=== PATIENT | male | born 1990 | race Two or more races ===

== ENCOUNTER 2021-02-07 17:07 | Inpatient (IN) | payer MEDICAID ==
[~2021-02-07] VITALS: Ht 182.9 cm; Wt 94.6 kg
--- NOTE | 2021-02-07 17:25 | NUR ---
THE PATIENT IS BIBS C/O GENERALIZED BODY PAIN X TODAY. 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 RATES GENETALIZED BODY PAIN 7/10. IN ROOM AIR AND DENIES SOB. RESPIRATION REGULAR AND UNLABORED. THE PATIENT IS ALERT AND ORIENTED X4. ATTACHED TO THE MONITOR.
[2021-02-07] MEDS ORDERED: IV NS 0.9% 1,000 ML BAG IV ONE (17:30)
--- NOTE | 2021-02-07 17:40 | NUR ---
CODE STEMI CALLED
--- NOTE | 2021-02-07 17:43 | NUR ---
CALLED [facility] [phone] [facility] FAXING FACE SHEET AND EKG [phone]
[2021-02-07 17:46] LABS: BASOPHILS % (AUTO) 0.3 % (0.0-2.0); HEMATOCRIT 46 % (39-51); HEMOGLOBIN 15.6 g/dL (13.5-17.5); LYMPHOCYTES # (AUTO) 1.1 K/uL (0.8-4.8); LYMPHOCYTES % (AUTO) 6.9 % (20.0-44.0); MEAN CORPUSCULAR HGB CONC 34 g/dl (31.0-36.0); MEAN CORPUSCULAR VOLUME 89 fL (80-96); MONOCYTES # (AUTO) 1.4 K/uL (0.1-1.30); NEUTROPHILS # (AUTO) 13.1 K/uL (1.8-8.9); NEUTROPHILS % (AUTO) 83.8 % (43.0-81.0); PLATELET COUNT (AUTO) 256 K/uL (150-450); RED BLOOD CELL COUNT(AUTO) 5.11 MIL/uL (4.5-6.0); WHITE BLOOD COUNT (AUTO) 15.6 K/uL (4.3-11.0)
[2021-02-07] MEDS ORDERED: ASPIRIN 325 MG TABLET ONE (17:50)
--- NOTE | 2021-02-07 17:54 | NUR ---
CALLED [facility] [phone] THEY GOT THE FAX CARDIOLOGIS IS SKIP.
[2021-02-07 17:55] LABS: CALCIUM, SERUM 9.7 mg/dL (8.5-10.1); CARBON DIOXIDE 25 mmol/L (21-32); CHLORIDE 90 mmol/L (98-107); CREATININE 2.8 mg/dL (0.6-1.3); GLUCOSE 120 mg/dL (74-106); POTASSIUM 3.1 mmol/L (3.5-5.1); SODIUM SERUM 131 mmol/L (136-145); UREA NITROGEN, BLOOD 13 mg/dL (7-18)
[2021-02-07] MEDS ORDERED: ASPIRIN 81 MG TAB.CHEW PO ONE (18:00)
--- NOTE | 2021-02-07 18:00 | NUR ---
[facility] CALLED BACK [facility] DOES NOT THINK ITS A STEMI. DR. VALDIVIA WILL CALL US BACK.
--- NOTE | 2021-02-07 18:04 | NUR ---
DR. VALDIVIA SPEAKING WITH DR. HENSON.
[2021-02-07 18:10] LABS: ACETAMINOPHEN < 0 ug/ml (10-30); ALANINE AMINOTRANSFERASE 33 U/L (12-78); ALBUMIN 5.1 g/dL (3.4-5.0); ALCOHOL, BLOOD < 3 mg/dL (0-0); ALKALINE PHOSPHATASE 69 U/L (46-116); BILIRUBIN,DIRECT 0.5 mg/dL (0.0-0.2); BILIRUBIN,TOTAL 1.9 mg/dL (0.2-1.0); TOTAL PROTEIN, SERUM 9.3 g/dL (6.4-8.2)
--- NOTE | 2021-02-07 18:11 | NUR ---
THE PATIENT IS ALERT AND ORIENTED X4. DENIES CHEST PAIN BUT C/O GENERALIZED BODY PAIN OF 4/10. WILL CONTINUE TO MONITOR THE PATIENT.
[2021-02-07 18:15] LABS: THYROID STIMULATING HORMONE 4.952 uIU/mL (0.358-3.74)
[2021-02-07 18:16] LABS: ASPARTATE AMINOTRANSFERASE 51 U/L (15-37)
--- NOTE | 2021-02-07 19:02 | NUR ---
MOVE SHEET SUBMITTED. AND CALLED FOR BED.
--- NOTE | 2021-02-07 20:45 | NUR ---
REPORT GIVEN TO ABI ZARAGOZA FOR CONTINUATION OF CARE.
[2021-02-07 21:30] VITALS: BP 148/96
--- NOTE | 2021-02-07 22:00 | NUR ---
Patient arrived at 2130 brought up by ER staff. In stable condition. A&Ox4. VSS. Tele monitor applied. patient states that he came in for body pain and cramps that were so bad he could not move and profuse sweating. Reports drinking 1/4 of a liquor bottle a day plus a couple beers everyday for about the last 4 months since his friend was killed. Reports friends as his support system but lives alone. SS consult ordered. Patient also reports doing meth once on 02/06 but had not used for a while before then. Patient no states that he no longer has the cramping or any pain. No sweating. Urine dark yellow and clear. Patient is continent, skin intact. HR fast upon auscultation but rhythm regular, lung sounds clear, bowel sounds active x4. no skin issues. Oriented to unit, protocols, call light, and remote. safety measures in place. Will continue to monitor closely.
[2021-02-07] MEDS ORDERED: Z GUARD REMEDY 2 OZ OINT TP PRN (23:30)
[2021-02-07] MEDS ORDERED: MAG HYDROX/AL HYDROX/SIMETH 30 ML UDC PO PRN (23:30)
[2021-02-07] MEDS ORDERED: ONDANSETRON HCL/PF 4 MG/2 ML VIAL IVP PRN (23:30)
[2021-02-07] MEDS ORDERED: ACETAMINOPHEN 325 MG TABLET PO PRN (23:30)
[2021-02-07] MEDS ORDERED: MAGNESIUM HYDROXIDE 30 ML UDC PO PRN (23:30)
[2021-02-07] MEDS ORDERED: ZOLPIDEM TARTRATE 5 MG TABLET PO PRN (23:30)
[2021-02-07] MEDS ORDERED: ENOXAPARIN SODIUM 30 MG/0.3 ML DISP.SYRIN SQ SCH (23:30)
[2021-02-07] MEDS: IV NS 0.9% 1,000 ML IV PRN (23:55)
[2021-02-08] VITALS: BP 135/85
[2021-02-08] MEDS ORDERED: ENOXAPARIN SODIUM 40 MG/0.4 ML DISP.SYRIN SQ SCH (01:30)
[2021-02-08 04:00] VITALS: BP 125/82
--- NOTE | 2021-02-08 06:17 | NUR ---
MORTGAGE FIELD INSPECTOR CLOSING NOTES Patient is A&Ox4. VSS. On monitor patients HR started around 100bpm but improved and now around 70bpm. Monitor reads junctional rhythm with inverted P-waves -same as on ER EKG. RAC and R hand #18G IVs flushed and patient. IV NS currently infusing to R hand IV at 75cc/hr. No issues overnight since admission. Patient is able to make needs known. NPO since midnight for cardio consult in AM -to hold breakfast until cleared. Sterile specimen cup at bedside. Pt educated urine needed for UA.
[2021-02-08 06:57] LABS: BASOPHILS # (AUTO) 0.1 K/uL (0.0-0.2); BASOPHILS % (AUTO) 0.6 % (0.0-2.0); EOSINOPHILS % (AUTO) 0.3 % (0.0-6.0); HEMATOCRIT 42 % (39-51); HEMOGLOBIN 14.7 g/dL (13.5-17.5); LYMPHOCYTES # (AUTO) 1.9 K/uL (0.8-4.8); LYMPHOCYTES % (AUTO) 24.6 % (20.0-44.0); MEAN CORPUSCULAR HGB CONC 35 g/dl (31.0-36.0); MEAN CORPUSCULAR VOLUME 90 fL (80-96); MONOCYTES % (AUTO) 12.5 % (2.0-12.0); NEUTROPHILS # (AUTO) 4.9 K/uL (1.8-8.9); PLATELET COUNT (AUTO) 220 K/uL (150-450); WHITE BLOOD COUNT (AUTO) 7.9 K/uL (4.3-11.0)
[2021-02-08 07:25] LABS: CALCIUM, SERUM 8.8 mg/dL (8.5-10.1); CREATININE 1.4 mg/dL (0.6-1.3); MAGNESIUM 2.1 mg/dL (1.8-2.4); PHOSPHORUS 4.9 mg/dL (2.5-4.9); POTASSIUM 3.1 mmol/L (3.5-5.1)
[2021-02-08] MEDS ORDERED: PANTOPRAZOLE 40 MG TABLET.DR PO SCH (07:30)
[2021-02-08 08:14] VITALS: BP 132/83
[2021-02-08 08:18] LABS: BILIRUBIN,DIRECT 0.5 mg/dL (0.0-0.2); BILIRUBIN,TOTAL 2.3 mg/dL (0.2-1.0); TOTAL PROTEIN, SERUM 7.6 g/dL (6.4-8.2)
[2021-02-08] MEDS ORDERED: ASPIRIN EC 81 MG TABLET.DR PO SCH (09:00)
[2021-02-08] MEDS: POTASSIUM CHLORIDE 20 MEQ TAB.PRT.SR PO SCH ×2 (09:37→10:32)
[2021-02-08] MEDS: IV NS 0.9% 1,000 ML IV PRN (12:34)
[2021-02-08 13:09] LABS: BILIRUBIN,URINE NEGATIVE (NEGATIVE); COLOR,URINE DARK YELLOW (YELLOW); LEUKOCYTE ESTERASE ,URINE TRACE (NEGATIVE); NITRITE, URINE NEGATIVE (NEGATIVE); PROTEIN,URINE NEGATIVE (NEGATIVE); UGLUCOSE NEGATIVE (NEGATIVE); UROBILINOGEN,URINE 0.2 EU/dL (0.2)
[2021-02-08 13:38] LABS: BACTERIA,URINE Few /HPF (None Seen); RBC,URINE 0-2 /HPF (0-2); SQUAMOUS EPITHELIAL CELL,UR Few /HPF (None Seen); WBC,URINE 51-80 /HPF (0-3)
--- NOTE | 2021-02-08 13:48 | NUR ---
Tool Design Checker consultation: Tool Design Checker consultation requested for ETOH and meth use. Per ED physician's notes, presented to the emergency department on 02/07/2021 describing a couple days of myalgias and body spasm. Patient states that he did use methamphetamines 2 days ago. He denies any drug use since then. This MEDICARE CONTACT SPECIALIST met with the patient bedside in his hospital room. Patient is a 30 year old -Emir[place] male, awake, alert, oriented x 4, receptive to meeting with this MEDICARE CONTACT SPECIALIST. Patient was pleasant and cooperative, engaged appropriately in this interview. Patient stated that he came to the ED for dehydration, body pain and spasms. Patient lives alone at [address] [place] [address]. [address] [address]. Patient is independent with ADL's, and works for a moving company. Patient denied having any medical problems, however reported use of alcohol, marijuana, and amphetamines. Patient stated he smokes marijuana on a daily basis, drinks several cans of beer and a couple of shots of tequila on a daily basis, and was using amphetamines in the past, but had not used for almost 5 months until he used again about 2-3 days before this hospitalization. Patient denies use of cigarettes. Patient denies hx of mental illness. This MEDICARE CONTACT SPECIALIST inquired whether patient had previously been in treatment for substance abuse, and patient stated he has not. This MEDICARE CONTACT SPECIALIST offered substance abuse treatment resources, and patient was receptive to accepting the resources. Discharge plans discussed, and patient stated that he would be returning home once he is discharged from the hospital. Patient stated that either his mother, Ana Trimble [phone] or his brother Sahil Hawkins [phone] would be able to pick him up from the hospital at time of discharge. The following resource were provided to the patient: [facility] Substance Abuse Self-helpline (SAS) Contact number . [facility] [id number] [facility] [place] [address] [facility] [address] [facility] [place] [address] [facility] (Taoism based) [address] [facility] [place] [address] [facility] (No insurance required) [address] [place] [address] [facility] [address] [facility] [phone] [facility] [phone] [address] [facility] [address]
[2021-02-08 15:39] LABS: CALCIUM, SERUM 8.8 mg/dL (8.5-10.1); CREATININE 1.3 mg/dL (0.6-1.3); POTASSIUM 3.6 mmol/L (3.5-5.1)
[2021-02-08 16:02] VITALS: BP 153/83
--- NOTE | 2021-02-08 17:02 | NUR ---
PLOW HOLDERENGINE INSPECTOR NOTE PATIENT DISCHARGED VIA PRIVATE CAR @ 4885. STABLE, A/O X4. NO SOB NOTED. NO DISTRESS/DISCOMFORT/PAIN NOTED AT THIS TIME. ALL EXITCARE AND PATIENT EDUCATION REVIEWED WITH AND GIVEN TO PATIENT. PATIENT VERBALIZED UNDERSTANDING. IV ACCESS REMOVED. WRISTBAND REMOVED. TELE MONITOR REMOVED. PATIENT ACCOMPANIED TO LOBBY ON FOOT BY MYSELF. PICKED UP BY BROTHER. AND CHARGE NURSE AWARE.
== END 2021-02-08 17:06 | disposition home or self-care (01) | DRG 207 ==
LOC: ER 17:07 → TELE 20:28
PROVIDERS: ADMIT Student in an Organized Health Care Education/Training Program; ATTEND Nurse Practitioner Acute Care
DX: I51.4 Myocarditis, unspecified (principal); N17.0 Acute kidney failure with tubular necrosis; E87.6 Hypokalemia; D72.829 Elevated white blood cell count, unspecified; F15.10 Other stimulant abuse, uncomplicated; R74.01 Elevation of levels of liver transaminase levels; R94.6 Abnormal results of thyroid function studies; E66.9 Obesity, unspecified; Z68.28 Body mass index [BMI] 28.0-28.9, adult; E86.0 Dehydration; Z20.822 Contact with and (suspected) exposure to COVID-19
CPT/HCPCS: 36415; 71045-TC; 76770-TC; 80048-TC; 80061-TC; 80076-TC; 81001; 82550-TC; 83605-TC; 83735-TC; 84100-TC; 84439-TC; 84443-TC; 84484-TC; 85025-TC; 85730-TC; 87040-TC; 87081-TC; 87086-TC; 93307-TC; C9803; G0378; G0480; J1650; J7030